=== PATIENT | female | born 1995 | race Caucasian/White ===

== ENCOUNTER 2025-01-28 04:33 | Emergency (ER) | payer OTHER, SELFPAY ==
--- OUTSIDE RECORDS SUMMARY | 2025-01-24 08:00 | XMS_ITS | Encounter Summary ---
Author Organization [facility] Address [address] [place] [address] Care Team Providers Care Welfare Eligibility Interviewer Name Role Phone Unavailable Primary Care Provider Unavailabl e Reason for Visit * Reason Comments Labs Only Encounter Details Date Type Department Care Team (Late st Contact Info) Description 01/24/2025 8:00 AM CDT Lab/X-Ray Only [employer] [place] [address] [place] [address] PCOS (polycystic ovarian syndrome) (Primary Dx); Hypothyroidism, unspecified type Social History Tobacco Use Types Packs/Day Years Used Date Smoking Tobacco: Never Passive Smoke Exposure: Never Smokeless Tobacco: Never Comments No Sex and Gender Information Value Date Recorded Sex Assigned at Not on file Legal Sex Female 9:40 AM CDT Gender Identity Not on file Sexual Orientation Not on file documented as of this encounter Progress Notes * Yuki Corbett RN - 01/24/2025 8:00 AM CDT PATIENT WAS HERE TODAY FOR A LAB DRAW. Lab ordered per PCP. documented in this encounter Plan of Treatment Not on file documented as of this encounter Results * TIBC % (01/27/2025 10:47 AM CDT) Blood us Do Nayeli [place] CHEMISTRY ORDERABLES Final Resul t [facility] [address] [phone] * TSH THIRD GENERATION (01/27/2025 10:47 AM CDT) Blood us Do Nayeli Vila CHEMISTRY ORDERABLES Final Resul t Performing Organization Address [facility] Co de Phone Number [facility] [address] [phone] * COMPREHENSIVE RETIC PANEL (01/27/2025 10:47 AM CDT) Blood us Do Nayeli Vila HEMATOLOGY ORDERABLES Final Resu lt Performing Organization Address [facility] Co de Phone Number [facility] [address] [phone] documented in this encounter Visit Diagnoses Diagnosis PCOS (polycystic ovarian syndrome)- Primary Polycystic ovaries Hypothyroidism, unspecified type documented in this encounter
[2025-01-28 04:44] VITALS: BP 191/116; PULSE 90; RESP 16; TEMP 36.6; O2SAT 99; BMI 42.5
--- OUTSIDE RECORDS SUMMARY | 2025-01-28 04:48 | XMS_ITS | Encounter Summary ---
Author Organization [facility] Address [address] [place] [address] Care Team Providers Care Account Underwriter Name Role Phone Unavailable Primary Care Provider Unavailabl e Encounter Details Date Type Department Care Team ([facility] st Contact Info) Description 01/27/2025 Orders Only [employer] [place] [address] [address] Yuki Corbett RN PCOS (polycystic ovarian syndrome); Hypothyroidism, unspecified type Social History Tobacco Use Types Packs/Day Years Used Date Smoking Tobacco: Never Passive Smoke Exposure: Never Smokeless Tobacco: Never Comments No Sex and Gender Information Value Date Recorded Sex Assigned at Not on file Legal Sex Female 9:40 AM CDT Gender Identity Not on file Sexual Orientation Not on file documented as of this encounter Plan of Treatment Not on file documented as of this encounter Procedures Procedure Name Priority Date/Time Associated Diagnosis Comments TSH THIRD GENERATION Routine 01/27/2025 10:47 AM CDT PCOS (polycystic ovarian syndrome) Hypothyroidism, unspecified type COMPREHENSIVE RETIC PANEL Routine 01/27/2025 10:47 AM CDT PCOS (polycystic ovarian syndrome) Hypothyroidism, unspecified type TIBC % Routine 01/27/2025 10:47 AM CDT PCOS (polycystic ovarian syndrome) Hypothyroidism, unspecified type documented in this encounter Results * COMPREHENSIVE RETIC PANEL (01/27/2025 10:47 AM CDT) Blood us Do License Buddy HEMATOLOGY ORDERABLES Final Resu lt Performing Organization Address [facility] de Phone Number [facility] [address] [phone] * TSH THIRD GENERATION (01/27/2025 10:47 AM CDT) Blood us Do License Buddy CHEMISTRY ORDERABLES Final Resul t Performing Organization Address [facility] Co de Phone Number [facility] 600 [facility] [place] [address] [place] [address] * TIBC % (01/27/2025 10:47 AM CDT) Blood us Do License Buddy CHEMISTRY ORDERABLES Final Resul t Performing Organization Address [facility] Co de Phone Number [facility] [address] [phone] documented in this encounter Visit Diagnoses Diagnosis PCOS (polycystic ovarian syndrome) Polycystic ovaries Hypothyroidism, unspecified type documented in this encounter
--- OUTSIDE RECORDS SUMMARY | 2025-01-28 04:48 | XMS_ITS | Clinical Summary ---
Author Organization [facility] Address [address] [place] [id number] Care Team Providers Care Coverstitch Elastic Attacher Name Role Phone Unavailable Primary Care Provider Unavailabl e Allergies No known active allergies Medications Docusate Sodium (DSS) 100 MG CAPS Take 100 mg by mouth 2 times daily as needed 12/03/2023 Active ferrous sulfate 325 (65 Fe) MG EC tablet Take 1 tablet (325 mg) by mouth 12/03/2023 Active lisinopril (ZESTRIL) 10 MG tablet Take 1 tablet (10 mg) by mouth daily Active metFORMIN (GLUCOPHAGE XR) 500 MG XR tablet TAKE 2 TABLETS BY MOUTH EVERY DAY WITH EVENING MEAL 06/06/2023 Active multivitamin ( S) 27-0.8 MG tablet Take 1 tablet by mouth Nightly Active rivaROXABAN (XARELTO) 20 MG tablet Take 1 tablet (20 mg) by mouth 12/06/2023 Active INCASSIA 0.35 MG tablet TAKE 1 TABLET BY MOUTH EVERY DAY AT THE SAME TIME 03/10/2024 Active levothyroxine (SYNTHROID) 150 MCG tabletIndication s: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 Take 1 tablet (150 mcg) by mouth every morning (before breakfast) 90 tablet 1 09/18/2024 03/17/20 25 Active Active Problems Problem Noted Date Diagnosed Date Chronic hypertension affecting 024 Sleep-disordered breathing 08/16/2023 Witnessed episode of apnea 08/16/2023 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 Polycystic ovary syndrome 07/13/2021 Hypertension 07/13/2020 Hypothyroid 07/13/2020 Insulin resistance 07/13/2020 Encounters Date Type Department Care Team Description 01/27/2025 Orders Only [facility] [address] [place] [address] Yuki Corbett RN PCOS (polycystic ovarian syndrome); Hypothyroidism, unspecified type 01/24/2025 8:00 AM CDT Lab/X-Ray Only [facility] [address] [address] PCOS (polycystic ovarian syndrome) (Primary Dx); Hypothyroidism, unspecified type 01/09/2025 8:10 AM CDT Office Visit [facility] [address] [address] Wellness examination (Primary Dx) from Last 3 Months Immunizations Immunization Administration Dates Next Due Covid-19 28 Day Interval Moderna 09/17/2020,08/03 Influenza, MDCK, trivalent, PF >=6 mos Influenza, Quadrivalent (CCIIV4) 04/07/2023 Social History Tobacco Use Types Packs/Day Years Used Date Smoking Tobacco: Never Passive Smoke Exposure: Never Smokeless Tobacco: Never Tobacco Cessation:Counseling Given: Not Answered Comments No Sex and Gender Information Value Date Recorded Sex Assigned at Not on file Legal Sex Female 9:40 AM CDT Gender Identity Not on file Sexual Orientation Not on file Last Filed Vital Signs Vital Sign Reading Time Taken Comments Blood Pressure 130/90 01/09/2025 8:45 AM CDT Pulse 85 07/31/2024 9:53 AM BEHAVIORAL INTERVENTION SPECIALIST Temperature - - Respiratory Rate - - Oxygen Saturation - - Inhaled Oxygen Concentration - - Weight 135.6 kg (298 lb 14.4 oz) 2024 8:45 AM CDT Height 175.3 cm (5' 9 ) 01/09/2025 8:45 AM CDT Body Mass Index 44.14 01/09/2025 8:45 AM CDT Plan of Treatment Health Maintenance Due Date Last Done Comments HIV Screening 1997 Hepatitis C Screening ages 18 to 79 once 1997 MMR VACCINES (1 of 1 - Standard series) 1998 DTaP/Tdap/Td Vaccines (1 - Tdap) 02/07/2004 DEPRESSION SCREENING 2009 Varicella Vaccine (1 of 2 - 13+ 2-dose series) 2010 HPV VACCINES (1 - 3-dose series) 02/07/2012 ADULT TETANUS 02/07/2016 HEPATITIS B VACCINES (1 of 3 - 19+ 3-dose series) 02/07/2016 CERVICAL CANCER SCREENING 2018 COVID-19 Immunization ( - 2023- season) 2024 09/17/2020, 08/20/2020 Influenza Vaccine 01/03/2025 03/08/2024, 04/07/2023 YEARLY WELLNESS EXAM 01/30/2025 01/31/2024, 08/25/2022, 08/25/2021, Additional history exists BMI Above/Below Normal Parameters 07/31/2025 07/31/2024, 07/31/2024, 04/30/2024, Additional history exists Zoster Vaccine (Recombinant Vaccine) (1 of 2) 2047 HEPATITIS A VACCINES Aged Out No long er eligible based on patient's age to complete this topic HIB VACCINES Aged Out No longer eligi ble based on patient's age to complete this topic IPV VACCINES Aged Out No longer eligi ble based on patient's age to complete this topic MENINGOCOCCAL VACCINE Aged Out No yuri derrek eligible based on patient's age to complete this topic Meningococcal B Vaccine Aged Out No l onger eligible based on patient's age to complete this topic Pneumococcal Vaccine: Peds to 50 & At-Risk Patients Aged Out No longer eligi ble based on patient's age to complete this topic ROTAVIRUS VACCINES Aged Out No longer eligible based on patient's age to complete this topic Procedures Procedure Name Priority Date/Time Associated Diagnosis Comments COMPREHENSIVE RETIC PANEL Routine 01/27/2025 10:47 AM CDT PCOS (polycystic ovarian syndrome) Hypothyroidism, unspecified type TSH THIRD GENERATION Routine 01/27/2025 10:47 AM CDT PCOS (polycystic ovarian syndrome) Hypothyroidism, unspecified type TIBC % Routine 01/27/2025 10:47 AM CDT PCOS (polycystic ovarian syndrome) Hypothyroidism, unspecified type LIPID PROFILE Routine 01/13/2025 6:35 AM CDT Wellness examination HEMOGLOBIN A1C Routine 01/13/2025 6:35 AM CDT Wellness examination URIC ACID Routine 01/13/2025 6:35 AM CDT Wellness examination COMPREHENSIVE METABOLIC PANEL Routine 01/13/2025 6:35 AM CDT Wellness examination from Last 3 Months Results * TSH THIRD GENERATION (01/27/2025 10:47 AM CDT) Blood us Do Nayeli Julito CHEMISTRY ORDERABLES Final Resul t Performing Organization Address [facility] Co hi Phone Number [facility] [address] [place] [address] * COMPREHENSIVE RETIC PANEL (01/27/2025 10:47 AM CDT) Blood us Do Nayeli Julito HEMATOLOGY ORDERABLES Final Resu lt Performing Organization Address [facility] Co de Phone Number [address] [place] [address] [place] [address] * TIBC % (01/27/2025 10:47 AM CDT) Blood us Do [facility] CHEMISTRY ORDERABLES Final Resul t Performing Organization Address [facility] Co de Phone Number [facility] [address] [place] [address] * URIC ACID (01/13/2025 6:35 AM CDT) Blood us Gabrielle Lehman SUPERVISOR KNITTING CHEMISTRY ORDERABLES Fi nal Result Performing Organization Address [facility] Co de Phone Number [facility] 600 [facility] [place] [address] [place] [address] * HEMOGLOBIN A1C (01/13/2025 6:35 AM CDT) Blood [facility] SUPERVISOR KNITTING CHEMISTRY ORDERABLES Fi nal Result Performing Organization Address [facility] Co de Phone Number [facility] 600 [facility] [place] [address] [place] [address] * LIPID PROFILE (01/13/2025 6:35 AM CDT) [facility] SUPERVISOR KNITTING CHEMISTRY ORDERABLES Fi nal Result Performing Organization Address [facility] Co hi Phone Number [facility] [address] [place] [address] [place] [address] [place] [address] * COMPREHENSIVE METABOLIC PANEL (01/13/2025 6:35 AM CDT) Blood [facility]rielle [facility] SUPERVISOR KNITTING CHEMISTRY ORDERABLES Fi nal Result Performing Organization Address [facility] de Phone Number [facility] [address] [place] [address] from Last 3 Months Insurance ANTHEM/BCBS ANTHEM/BCBS ANTHEM/BS WEB [facility]
[2025-01-28 04:53] LABS: Hematocrit 42.3 % (36-47); Hemoglobin 13.90 g/dL (11.27-16.99); Mean Corpuscular HGB Conc 32.9 g/dL (30-55); Mean Corpuscular Hemoglobin 28.2 pg (27-33); Mean Corpuscular Volume 85.8 fl (85-98); Nucleated Red Blood Cells % 0 %; Platelet Count 258 10^3/cmm (157-399); Red Blood Count 4.93 10^6/uL (3.85-5.65); White Blood Count 10.02 10^3/uL (3.29-11.43)
[2025-01-28 05:06] VITALS: BP 181/112; PULSE 100; RESP 16; O2SAT 99
[2025-01-28 05:07] LABS: Alanine Aminotransferase 26 U/L (0-33); Albumin Level 4.4 g/dL (3.5-5.2); Alkaline Phosphatase 119 U/L (35-105); Anion Gap 12.9 (5-19); Aspartate Amino Transferase 20 U/L (0-32); Blood Urea Nitrogen 9 mg/dL (6-20); Calcium 9.2 mg/dL (8.5-10.5); Carbon Dioxide 25 mmol/L (22-29); Chloride 104 mmol/L (98-107); Creatinine Clr Calc Pharmacy 198.1974; Globulin 3.1 g/dL (1.3-4.6); Glucose 95 mg/dL (65-115); Lipase 33 U/L (13-60); Osmolality Calculated 284 mOsm/kg (285-295); Potassium 3.9 mmol/L (3.5-5.1); Sodium 138 mmol/L (136-145); Total Protein 7.5 g/dL (6.6-8.7)
[2025-01-28 05:10] LABS: HCG Qualitative Urine. Negative (Negative)
--- NOTE | 2025-01-28 05:11 | USR_ITS ---
PROCEDURE INFORMATION: Exam: US Pelvis, Transvaginal, Non-Obstetric Exam date and time: 01/28/2025 5:39 AM Age: 29 years old Clinical indication: RT side pelvic pain HX of poly cystic ovary TECHNIQUE: Imaging protocol: Real-time transvaginal pelvic (non-obstetric) ultrasound with image documentation. Transvaginal imaging was used for better evaluation of the endometrium, adnexa, and/or cervix. COMPARISON: No relevant prior studies available. FINDINGS: Uterus: Uterus is normal. Endometrial stripe is normal. Right ovary/adnexa: Collapsing 2.6 cm ovarian cyst. No mass. Normal ovarian blood flow on color Doppler. Left ovary/adnexa: Normal. No mass. Normal ovarian blood flow on color Doppler. Urinary bladder: Urinary bladder is limited. Intraperitoneal space: Small volume free fluid in the cul-de-sac. US/US transvaginal [id number] IMPRESSION: No significant abnormality.
--- NOTE | 2025-01-28 05:11 | W.ED.ABDPA2 ---
HPI - Abdominal Pain General: Chief Complaint: Abdominal Pain Stated Complaint: Lower Rt ADD Pain Time Seen by Provider: 01/28/25 04:43 History of Present Illness: 29-year-old female presents emergency room with complaints of right sided pelvic pain. She initially had pain 2 days ago, waxed and waned eventually resolved yesterday she felt well. Overnight she began to have discomfort again she got up to go to the bathroom this morning try heat x 1. She urinated no bowel movement her symptoms worsen significantly. She has not previously had any symptoms like this in the last couple of weeks. She denies any fever sweats or chills no medic easy melena hematemesis or coffee-ground emesis. She has a history of PCOS that she is about due to have her period begin. Associated Symptoms: Reports nausea and vomiting; Denies chills, coffee ground emesis, diarrhea, dysuria, fever(s), hematochezia, hematemesis and melena Related Data Date of Last Menstrual Period: 12/31/24 Previous Rx's ?Medication ?Instructions ?Recorded amlodipine 2.5 mg tablet 2.5 mg PO DAILY #30 tabs 01/28/25 cephalexin 500 mg capsule 500 mg PO TID 7 days #21 caps 01/28/25 diclofenac sodium 75 mg 75 mg PO Q12H PRN pain #20 tabs 01/28/25 tablet,delayed release Allergies Allergy/AdvReac Type Severity Reaction Status Date / Time No Known Drug Allergies Allergy Unknown Unknown Verified 01/28/25 06:19 Review of Systems Const: Denies: fever(s) or chills Card: Denies: chest pain Resp: Denies: dyspnea GI: Reports: abdominal pain, nausea and vomiting; Denies: hematemesis, coffee ground emesis, diarrhea, hematochezia or melena : Denies: dysuria, urinary frequency or urinary urgency Musc: Denies: neck pain or back pain Skin/Breast: Denies: rash PFSH ED PFSH: Medical History History of PCOS Female Reproductive History: Date of last menstrual period: 12/31/24 Physical Exam Const: GENERAL APPEARANCE: cooperative ORIENTATION/CONSCIOUSNESS: Yes awake, Yes oriented to person, Yes oriented to place and Yes oriented to time HENMT: COMMON NORMALS: normocephalic, atraumatic and hearing grossly normal bilaterally HEAD & SCALP: normocephalic and atraumatic Resp: COMMON NORMALS: normal respiratory effort, No retractions, No use of accessory muscles and clear to auscultation bilaterally AUSCULTATION: clear to auscultation bilaterally Cardio: COMMON NORMALS: regular rate, regular rhythm and No murmurs present (Cardio) RATE: regular rate RHYTHM: regular rhythm GI: COMMON NORMALS: Soft to palpation and No hepatosplenomegaly present AUSCULTATION: Yes normoactive bowel sounds PALPATION: Yes Soft to palpation, No Tenderness to palpation present (GI), No Guarding due to palpation present (GI) and Yes No hepatosplenomegaly present Extremity: COMMON NORMALS: normal to inspection, capillary refill normal, no clubbing, cyanosis or edema, no calf tenderness and no pedal edema Neuro: SENSORIUM/ORIENTATION: Yes oriented to person, Yes oriented to place and Yes oriented to time Skin: COMMON NORMALS: no rashes or lesions noted GENERAL SKIN EXAM: no rashes or lesions noted Course Vital Signs: Vital signs: Vital Signs Temperature 97.8 F 01/28/25 04:44 Pulse Rate 91 01/28/25 07:00 Respiratory Rate 16 01/28/25 06:16 Blood Pressure 163/106 01/28/25 07:00 Pulse Oximetry 99 01/28/25 07:00 Oxygen Delivery Me thod Room Air 01/28/25 06:16 MDM - Abdominal Pain Medical Decision Making Ultrasound shows collapsing cyst think majority of her discomfort in her pelvis is due to the collapsed cyst. She incidentally has a small bladder infection will treat with oral antibiotics she is given dose Rocephin here. She is given diclofenac for the ovarian cyst finally her blood pressure is markedly elevated started on 2.5 of amlodipine and have her follow-up with her primary care doctor to reevaluate. Discussed with her its likely not to be adequate to attain goal but will lower from extreme elevations. Return if has further problems. Medical Records I reviewed the patient's medical records. Lab Data I reviewed the patient's lab results. 01/28/25 04:46 01/28/25 04:46 Labs/Radiology: Radiology Impressions Transvaginal US 01/28/25 05:11 IMPRESSION: No significant abnormality. Laboratory Results WBC 10.02 10^3/uL (3.29-11.43) 01/28/25 04:46 RBC 4.93 10^6/uL (3.85-5.65) 01/28/25 04:46 Hgb 13.90 g/dL (11.27-16.99) 01/28/25 04:46 Hct 42.3 % (36-47) 01/28/25 04:46 MCV 85.8 fl (85-98) 01/28/25 04:46 MCH 28.2 pg (27-33) 01/28/25 04:46 MCHC 32.9 g/dL (30-55) 01/28/25 04:46 RDW 12.9 % (12.1-15.1) 01/28/25 04:46 Plt Count 258 10^3/cmm (157-399) 01/28/25 04:46 MPV 10.1 fL (7.4-10.4) 01/28/25 04:46 Neut % (Auto) 65.8 % 01/28/25 04:46 Lymph % (Auto) 28.0 % 01/28/25 04:46 Nobles % (Auto) 4.2 % 01/28/25 04:46 Eos % (Auto) 1.4 % 01/28/25 04:46 Baso % (Auto) 0.3 % 01/28/25 04:46 Neut # (Auto) 6.59 10^3/uL (1.8-7.7) 01/28/25 04:46 Lymph # (Auto) 2.8 10^3/uL (0.8-4.8) 01/28/25 04:46 Nobles # (Auto) 0.4 10^3/uL (0.2-0.9) 01/28/25 04:46 Eos # (Auto) 0.1 10^3/uL (0.0-0.8) 01/28/25 04:46 Baso # (Auto) 0.0 10^3/uL (0.0-0.1) 01/28/25 04:46 Nucleated RBC % (auto) 0 % 01/28/25 04:46 Nucleated RBCs # 0.0 /100WBC 01/28/25 04:46 Sodium 138 mmol/L (136-145) 01/28/25 04:46 Potassium 3.9 mmol/L (3.5-5.1) 01/28/25 04:46 Chloride 104 mmol/L (98-107) 01/28/25 04:46 Carbon Dioxide 25 mmol/L (22-29) 01/28/25 04:46 Anion Gap 12.9 (5-19) 01/28/25 04:46 BUN 9 mg/dL (6-20) 01/28/25 04:46 Creatinine 0.6 mg/dL (0.5-0.9) 01/28/25 04:46 GFR Calculation 119.9 mL/min (90-130) 01/28/25 04:46 Glucose 95 mg/dL (65-115) 01/28/25 04:46 Calculated Osmolality 284 mOsm/kg (285-295) L 01/28/25 04:46 Calcium 9.2 mg/dL (8.5-10.5) 01/28/25 04:46 Total Bilirubin 0.4 mg/dL (0.15-1.2) 01/28/25 04:46 AST 20 U/L (0-32) 01/28/25 04:46 ALT 26 U/L (0-33) 01/28/25 04:46 Alkaline Phosphatase 119 U/L (35-105) H 01/28/25 04:46 Total Protein 7.5 g/dL (6.6-8.7) 01/28/25 04:46 Albumin 4.4 g/dL (3.5-5.2) 01/28/25 04:46 Globulin 3.1 g/dL (1.3-4.6) 01/28/25 04:46 Lipase 33 U/L (13-60) 01/28/25 04:46 HCG, Qual Negative (Negative) 01/28/25 04:46 Urine Color Yellow (Yellow) 01/28/25 06:10 Urine Appearance Clear (CLEAR) 01/28/25 06:10 Urine pH 6.0 (5-7) 01/28/25 06:10 Ur Specific [place] 1.008 (1.005-1.030) 01/28/25 06:10 Urine Protein Negative (Negative) 01/28/25 06:10 Urine Glucose (UA) Negative (Normal) 01/28/25 06:10 Urine Ketones Negative (Negative) 01/28/25 06:10 Urine Blood Negative (Negative) 01/28/25 06:10 Urine Nitrate Negative (Negative) 01/28/25 06:10 Urine Bilirubin Negative (Negative) 01/28/25 06:10 Urine Urobilinogen 0.2 mg/dL (Negative) 01/28/25 06:10 Ur Leukocyte Esterase 1+ (Negative) A 01/28/25 06:10 Urine RBC 0-2 /hpf (0-2) 01/28/25 06:10 Urine WBC 6-10 /hpf (0-5) 01/28/25 06:10 Ur Squamous Epith Cells 0-5 /hpf (0-5) 01/28/25 06:10 Amorphous Sediment Not Reportable 01/28/25 06:10 Urine Bacteria None seen /hpf (NONE) 01/28/25 06:10 Hyaline Casts 0.40 /lpf 01/28/25 06:10 All radiology interpretation(s) finalized by discharge Discharge Plan Discharge Patient Disposition: Home Clinical Impression: Cystitis, History of PCOS Ovarian cyst Qualifiers: Laterality: right Qualified Code(s): N83.201 - Unspecified ovarian cyst, right side Hypertension Qualifiers: Hypertension type: primary hypertension Qualified Code(s): I10 - Essential (primary) hypertension Condition: Stable Prescriptions: New amlodipine 2.5 mg tablet 2.5 mg PO DAILY Qty: 30 0RF cephalexin 500 mg capsule 500 mg PO TID 7 Days Qty: 21 0RF diclofenac sodium 75 mg tablet,delayed release (DR/EC) 75 mg PO Q12H PRN (Reason: pain) Qty: 20 0RF Discharge Orders: Discharge ED (Routine); Ordered 01/28/25 Ordered By: Alejandro Harding Referrals: Nayeli Vila DO [Primary Care Provider, ENGINE TESTING SUPERVISOR] Discharge Diet: Usual diet Discharge Activity: Increase activity as tolerated Patient Instructions: Opioid Safety, Pain Management, Patient Portal & Ana Instructions Activity Restrictions/Additional Instructions: Thank you for choosing [facility] for your healthcare needs today. It is very important that you follow up as instructed or that you return to the Emergency Department should you have concerns or if your condition changes or worsens in any way. You are seen emergency room complaining of right pelvic pain on the ultrasound that shows a collapsing cyst. The discomfort is from fluid in the pelvis from the cyst. You are given diclofenac to take as needed for pelvic discomfort. You are also noted to have a mild bladder infection. You are given dose of antibiotics while in the emergency room discharged home with oral antibiotics to take for 1 week. Finally your blood pressure is markedly elevated recommend you start on amlodipine 2.5 mg once daily and follow-up with your primary care docto within the next 10 to 14 days. Print Language: Nigerian Coding Level of Care Code ED Bioinformatics Software Engineer for Ginette Munguia
[2025-01-28 06:16] VITALS: BP 152/107; PULSE 87; RESP 16; O2SAT 99
[2025-01-28] MEDS: labetalol 5 mg/mL SDV 20mL 10 MG IVP (06:19)
[2025-01-28 06:24] LABS: Glucose Urine UA Negative (Normal); Nitrate Urine Negative (Negative); Specific Gravity, Urine 1.008 (1.005-1.030)
[2025-01-28 06:29] LABS: Add Urine Microscopic? YES
[2025-01-28] MEDS: cefTRIAXone 1,000 mg SDV 1000 MG IVP (06:51)
[2025-01-28 07:00] VITALS: BP 163/106; PULSE 91; O2SAT 99
== END 2025-01-28 07:01 | disposition home or self-care (01) ==
PROVIDERS: Student in an Organized Health Care Education/Training Program; Emergency Provider Family Medicine; PCP Family Medicine
DX: N30.90 Cystitis, unspecified without hematuria (principal); E28.2 Polycystic ovarian syndrome
CPT/HCPCS: 36415; 76830; 80053; 81001; 81025; 83690; 85025; 96374; 96375; 99284; J0696; J1885; J3490

== ENCOUNTER → 2025-03-03 15:48 | Outpatient (BNVA) | payer OTHER, SELFPAY | PROVIDERS: PCP Family Medicine; Visit Provider Nurse Practitioner Women's Health | DX: Z12.4 Encounter for screening for malignant neoplasm of cervix (principal) | CPT/HCPCS: 87624 ==